=== PATIENT | male | born 1990 | race African-American/Black ===

== ENCOUNTER 2020-02-11 07:25 | Emergency (ER) | payer BC ==
[~2020-02-11] VITALS: Ht 190.5 cm; Wt 181.4 kg
[2020-02-11] MEDS ORDERED: AUGMENTIN 875-1 EACH PO (08:09)
--- NOTE | 2020-02-11 11:37 | Emergency Department Note ---
History of Present Illnes History of Present Illness Chief Complaint: Eye, Ear, Nose, Throat, Dental History of Present Illness This is a 29 year old male with cc of left earache X 3 days. No runny nose, no headache, no sore throat, no fever/chills, no sick contacts, no cough. 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 Has frequent ear wax build up of right ear requires OTC ear wax remedies every 2 months) Past Medical/Family History Physician Review I have reviewed the patient's past medical and family history. Any updates have been documented here. Past Medical History Recent Fever: No Clinical Suspicion of Infectio: No New/Unexplained Change in Ment: No Past Medical History: Hyperlipedemia Other Surgery: ABCESS REMOVAL RIGHT THIGH Social History Smoking Cessation: Never Smoker Alcohol Use: Occasional Any Illegal Drug Use: No Other Any Pre-Existing Lines (PICC,: No Review of Systems Review of Systems Constitutional: Denies chills, Denies fever, Denies malaise, Denies weakness EENTM: Reports as per HPI; Denies nose congestion, Denies throat pain, Denies throat swelling, Denies mouth pain, Denies mouth swelling Cardiovascular: Denies chest pain, Denies palpitations Respiratory: Denies cough, Denies dyspnea Gastrointestinal: Denies abdominal pain, Denies diarrhea, Denies nausea, Denies vomiting Genitourinary: Denies dysuria Musculoskeletal: Denies joint pain, Denies joint swelling Integumentary: Denies rash Neurological: Denies headache, Denies weakness Endocrine: Denies intolerance to cold, Denies intolerance to heat Hematological/Lymphatic: Denies easy bleeding, Denies easy bruising Physical Exam Related Data Triage Vital Signs Vital Signs Date Time Temp Pulse Resp B/P (MAP) Pulse Ox O2 Delivery O2 Flow Rate FiO2 02/11/20 07:43 99.5 91 16 142/85 99 Room Air Physical Exam CONSTITUTIONAL Constitutional: Present well-developed, Present well-nourished, Present obese HENT HENT: Present normocephalic, Present atraumatic, Present oropharynx clear/moist, Present oropharynx normal, Present mucosae dry, Present nose normal; Absent nasal discharge, Absent nasal congestion, Absent rhinorrhea, Absent oropharyngeal exudate, Absent tonsillar excudate, Absent pharynx abnormal, Absent erythema HENT L/R: Present left ext ear normal, Present right ext ear normal, Present right impacted cerumen; Absent left TM normal (mod errythema of TM with loss of light reflex), Absent left canal normal (mild errythema with no swelling) EYES Eyes: Reports PERRL, Reports conjunctivae normal; Denies left eye discharge, Denies right eye discharge NECK Neck: Present ROM normal PULMONARY Pulmonary: Present effort normal, Present breath sounds normal CARDIOVASCULAR Cardiovascular: Present regular rhythm, Present heart sounds normal, Present capillary refill normal, Present normal rate GASTROINTESTINAL Abdominal: Present soft, Present nontender, Present bowel sounds normal GENITOURINARY SKIN Skin: Present warm, Present dry; Absent rash MUSCULOSKELETAL Musculoskeletal: Present ROM normal NEUROLOGICAL Neurological: Present alert, Present oriented x 3 PSYCHOLOGICAL Psychological: Present mood/affect normal, Present behavior normal, Present judgement normal Assessment & Plan Medical Decision Making MDM Differential for ear pain includes, but is not limited to otitis media, otitis externia, dental causes (abcess, carries, etc), tumor, ACS, KS, Mastoiditis, FB, sinusitis, Shingles. TM of painful ear red. Will treat with abx. Assessment & Plan Final Impression: (1) Impacted cerumen of right ear (2) Otitis media of left ear Depart Disposition: HOME, SELF-CARE Last Vital Signs Date Time Temp Pulse Resp B/P (MAP) Pulse Ox O2 Delivery O2 Flow Rate FiO2 02/11/20 07:43 99.5 91 16 142/85 99 Room Air Home Meds Active Scripts Amoxicillin/Potassium Clav (AUGMENTIN 875-125 TABLET) 1 Each Tablet, 1 TAB PO BID for ear infection, #20 Prov:BRIE STANFORD MD 02/11/20 BRIE STANFORD MD Feb 11, 2020 08:05
== END 2020-02-11 08:20 | disposition home or self-care (01) ==
LOC: FSED 07:58
DX: H66.92 Otitis media, unspecified, left ear (principal); H61.21 Impacted cerumen, right ear
CPT/HCPCS: 99283